=== PATIENT | female | born 1990 | race African-American/Black ===

== ENCOUNTER 2021-08-18 20:40 | Inpatient (IN) ==
[2021-08-18 21:51] LABS: Bacteria,Urine Occasional /HPF (Few); Bilirubin,Urine Negative (Negative); Blood, Urine Negative (Negative); Glucose,Urine (UA) Negative (Negative); Ketones,Urine Negative (Negative); Mucus,Urine Occasional /LPF (Occasional); Nitrite,Urine Negative (Negative); Protein,Urine Negative; RBC,Urine <1 /HPF (0-4); Squamous Epithelial Cell,Urine Occasional /HPF (0-10); Urine Appearance CLEAR (Clear); Urine Color Yellow (Yellow); Urine Specific Gravity 1.011 (1.001-1.035); Urine Urobilinogen < 2.0 EU/DL (0.2-1.0)
[2021-08-18] MEDS ORDERED: ONDANSETRON 4 MG/2 ML VIAL IV PRN (23:11)
[2021-08-18] MEDS ORDERED: BUTORPHANOL 1 MG/ML VIAL IV PRN (23:11)
[2021-08-19] MEDS ORDERED: MEPERIDINE 50 MG/1 ML VIAL IV PRN ×3 (00:51→01:13)
[2021-08-19] MEDS ORDERED: LACTATED RINGERS 1,000 ML IV SCH (01:30)
[2021-08-19 01:33] LABS: Basophils % 0.3 % (0.0-0.8); Eosinophils # 0.2 10*3/uL (0.0-0.87); Eosinophils % 1.9 % (0.00-10.9); Hematocrit 32.7 VOL% (35.7-47.0); Hemoglobin 10.5 GM/DL (12.0-16.0); Immature Granulocytes % 0.8 %; Immature Granulocytes Absolute 0.08 #; Lymphocytes # 1.9 10*3/uL (1.4-4.0); Lymphocytes % 19.7 % (21.3-54.2); Mean Corpuscular HGB Conc 32.1 GM/DL (32-36); Mean Corpuscular Volume 98.2 FL (87-102); Mean Platelet Volume 9.7 FL (9.6-12.0); Monocytes % 8.4 % (1.7-12.7); Neutrophils % 68.9 % (38.7-73.9); Platelet Count 255 T/CUMM (130-400); Red Blood Count 3.33 MC/CUMM (3.8-5.5); Red Cell Distribution Width 13.4 % (9.3-17.3); White Blood Count 9.6 T/CUMM (4-12)
[2021-08-19 01:53] LABS: Albumin 2.9 G/DL (3.4-5.0); Calcium 8.9 MG/DL (8.5-10.1); Potassium 3.6 MMOL/L (3.5-5.1); Total Protein 6.7 G/DL (6.4-8.2)
[2021-08-19] MEDS ORDERED: OXYTOCIN/LR 20 UNIT/1,000 ML BAG IV ONE ×2 (03:08→07:38)
[2021-08-19] MEDS ORDERED: METHYLERGONOVINE 0.2 MG/1 ML AMP ONE (03:17)
[2021-08-19] MEDS ORDERED: TRANEXAMIC ACID 1,000 MG/10 ML VIAL ONE (03:17)
[2021-08-19] MEDS ORDERED: miSOPROStoL 200 MCG TABLET ONE (03:17)
[2021-08-19] MEDS ORDERED: LIDOCAINE 1% 50 ML VIAL ONE (03:18)
[2021-08-19] MEDS ORDERED: CARBOPROST TROMETHAMINE 250 MCG/ML AMP IM ONE (03:18)
[2021-08-19] MEDS ORDERED: OXYTOCIN/LR 30 UNIT/1,000 ML BAG IV ONE (03:30)
[2021-08-19 03:56] LABS: Cord Venous Blood PCO2 49.8 MMHG; Cord Venous Blood PO2 32.2
[2021-08-19] MEDS ORDERED: OXYTOCIN/LR 20 UNIT/1,000 ML BAG IV SCH (06:00)
[2021-08-19] MEDS ORDERED: BISACODYL 10 MG SUPP RECTAL PRN (07:38)
[2021-08-19] MEDS ORDERED: RHO(D) IMMUNE GLOBULIN 300 MCG SYRINGE IM ONE (07:38)
[2021-08-19] MEDS ORDERED: HYDROCORTISONE 2.5% RECTAL CREAM 30 GM TUBE TOP PRN (07:38)
[2021-08-19] MEDS ORDERED: MEASLES/MUMPS/RUBELLA VACCINE 0.5 ML VIAL SUBCUT ONE (07:38)
[2021-08-19] MEDS ORDERED: ACETAMINOPHEN 325 MG TABLET PO PRN (07:38)
[2021-08-19] MEDS ORDERED: DIPH/TET/ACEL PERT BOOSTER VACCINE 0.5 ML VIAL IM ONE (07:38)
[2021-08-19] MEDS ORDERED: WITCH HAZEL PADS 100/JAR TOP PRN (07:38)
[2021-08-19] MEDS ORDERED: oxyCODONE/ACETAMINOPHEN 5-325 MG TABLET PO PRN ×2 (07:38)
[2021-08-19] MEDS ORDERED: LANOLIN 50% CREAM 0.3 OZ TUBE TOP PRN (07:38)
[2021-08-19] MEDS ORDERED: BENZOCAINE 20%/MENTHOL 0.5% SPRAY 56 GM CAN TOP PRN (07:38)
[2021-08-19] MEDS: DOCUSATE SODIUM 100 MG CAPSULE PO SCH ×2 (09:40→20:14)
[2021-08-19] MEDS: IBUPROFEN 800 MG TABLET PO PRN (20:15)
[2021-08-20 05:24] LABS: Basophils # 0.1 10*3/uL (0.0-0.2); Basophils % 0.6 % (0.0-0.8); Eosinophils # 0.4 10*3/uL (0.0-0.87); Eosinophils % 3.5 % (0.00-10.9); Hemoglobin 10.1 GM/DL (12.0-16.0); Immature Granulocytes % 0.6 %; Immature Granulocytes Absolute 0.07 #; Lymphocytes # 2.7 10*3/uL (1.4-4.0); Lymphocytes % 24.6 % (21.3-54.2); Mean Corpuscular HGB Conc 31.6 GM/DL (32-36); Mean Platelet Volume 10.4 FL (9.6-12.0); Monocytes % 6.4 % (1.7-12.7); Neutrophils % 64.3 % (38.7-73.9); Platelet Count 271 T/CUMM (130-400); Red Cell Distribution Width 13.5 % (9.3-17.3); White Blood Count 11.1 T/CUMM (4-12)
[2021-08-20] MEDS: DOCUSATE SODIUM 100 MG CAPSULE PO SCH ×2 (09:02→21:11)
[2021-08-20] MEDS: IBUPROFEN 800 MG TABLET PO PRN (16:38)
[2021-08-21] MEDS: IBUPROFEN 800 MG TABLET PO PRN (02:03)
[2021-08-21] MEDS: DOCUSATE SODIUM 100 MG CAPSULE PO SCH (09:05)
[2021-08-21 10:14] VITALS: BP 110/76
== END 2021-08-21 12:15 | disposition home or self-care (01) | DRG 560 ==
LOC: N.LDOUT 20:40 → N.LD 20:43 → N.OB 08-19 09:26
PROVIDERS: ADMIT Obstetrics & Gynecology; ATTEND Obstetrics & Gynecology